=== PATIENT | female | born 1980 | race Caucasian/White ===

== ENCOUNTER 2020-08-03 11:00 | Emergency (ER) | payer BC ==
[2020-08-03] MEDS ORDERED: CLINDAMYCIN 600 MG/D5W RTU 600 MG/50 ML RTUPB IV ONE (11:44)
--- NOTE | 2020-08-03 11:52 | ER Document Report ---
ED Medical Screen (RME) - General Chief Complaint: Abscess Stated Complaint: ABSCESS Time Seen by Provider: 08/03/20 11:34 Mode of Arrival: Wheelchair Information source: Patient Notes: HPI; 39-year-old female presents to the emergency room with a questional abscess to her left inner thigh for the past 5 days. Started taking leftover Bactrim and Flagyl that she had from her previous abscess in May for the past 3 days states the abscess has been getting progressively bigger. Patient was seen in [facility] in May for an abscess to her right side of her abdomen. Had it lanced ended up being admitted for 3 days for IV antibiotics. Was diagnosed with MRSA. Patient states symptoms fully resolved and now she has a new one on her left inner thigh. She recently moved here from [place] 1 week ago. She denies any fevers. No COVID-19 exposure. PE: Alert and oriented x3. Lungs: Clear to auscultation without rales, rhonchi, wheezes. Heart: Tachycardic without murmurs, rubs or gallops. Unable to do full assessment in triage. I have greeted and performed a rapid initial assessment of this patient. A comprehensive ED assessment and evaluation of the patient, analysis of test results and completion of the medical decision making process will be conducted by additional ED providers. I have specifically instructed the patient or family members with the patient to immediately return to any nursing staff should anything change in the patient's condition or with their chief complaint. TRAVEL OUTSIDE OF THE [place] IN LAST 30 DAYS: No - Related Data Allergies/Adverse Reactions: Penicillins Allergy (Verified 08/03/20 11:32) Physical Exam - Vital signs Vitals: Temp Pulse Resp BP Pulse Ox 98 F 101 H 20 139/90 H 100 08/03/20 11:10 08/03/20 11:10 08/03/20 11:10 08/03/20 11:10 08/03/20 11:10 Course - Vital Signs Vital signs: Temp Pulse Resp BP Pulse Ox 98 F 101 H 20 139/90 H 100 08/03/20 11:10 08/03/20 11:10 08/03/20 11:10 08/03/20 11:10 08/03/20 11:10
[2020-08-03 12:11] LABS: ABSOLUTE BASOPHILS # (AUTO) 0.1 10^3/uL (0.0-0.2); ABSOLUTE EOSINOPHILS # (AUTO) 0.2 10^3/uL (0.0-0.6); ABSOLUTE LYMPHOCYTES (AUTO) 1.6 10^3/uL (0.5-4.7); ABSOLUTE MONOCYTES (AUTO) 0.8 10^3/uL (0.1-1.4); ABSOLUTE NEUT (AUTO) 7.6 10^3/uL (1.7-8.2); EOSINOPHILS % (AUTO) 2.3 % (0-6); HEMATOCRIT 44.7 % (36.0-47.0); HEMOGLOBIN 15.5 g/dL (12.0-15.5); LYMPHOCYTES % (AUTO) 15.2 % (13-45); MEAN CORPUSCULAR HEMOGLOBIN 31.5 pg (27.0-33.4); MEAN CORPUSCULAR HGB CONC 34.7 g/dL (32.0-36.0); MEAN CORPUSCULAR VOLUME 91 fl (80-97); MONOCYTES % (AUTO) 7.9 % (3-13); PLATELET COUNT 350 10^3/uL (150-450); RED BLOOD COUNT 4.93 10^6/uL (3.72-5.28); RED CELL DISTRIBUTION WIDTH 13.1 % (11.5-14.0); SEGMENTED NEUTROPHILS % (AUTO) 73.6 % (42-78); TOTAL CELLS COUNTED % (AUTO) 100 %; WHITE BLOOD COUNT 10.3 10^3/uL (4.0-10.5)
[2020-08-03 12:25] LABS: ALBUMIN 4.5 g/dL (3.5-5.0); ALKALINE PHOSPHATASE 96 U/L (38-126); ANION GAP 9 (5-19); ASPARTATE AMINO TRANSFERASE 18 U/L (14-36); BILIRUBIN,DIRECT 0.3 mg/dL (0.0-0.4); BILIRUBIN,TOTAL 0.6 mg/dL (0.2-1.3); BLOOD UREA NITROGEN 16 mg/dL (7-20); CARBON DIOXIDE 28 mmol/L (22-30); CHLORIDE 103 mmol/L (98-107); GLUCOSE 81 mg/dL (75-110); TOTAL PROTEIN 7.8 g/dL (6.3-8.2)
[2020-08-03] MEDS ORDERED: MORPHINE SULFATE 10 MG/ML INJ IV ONE (13:54)
--- NOTE | 2020-08-03 13:58 | ER Document Report ---
ED Skin Rash/Insect Bite/Abscs - General Chief Complaint: Abscess Stated Complaint: ABSCESS Time Seen by Provider: 08/03/20 11:34 Mode of Arrival: Wheelchair Information source: Patient TRAVEL OUTSIDE OF THE [place] IN LAST 30 DAYS: No - HPI Notes: 39-year-old female presents to ED for evaluation of abscess to the left mid proximal thigh for the last week. Patient reports that roughly 2 to 3 days ago she started taking leftover antibiotic she had from May when she was seen in [place] for similar complaints. Patient reports she had a right abdominal abscess that was treated with IV antibiotics and packing while in the hospital. Patient states she also had one to her left forearm at the same time. She has taken 3 days of Flagyl and Bactrim without improvement to her current abscess. Patient is uncertain about history of MRSA. Notes drainage to the area of the left thigh. Denies fever, chills, nausea, vomiting, chest pain or SOB. Reports she did just moved to this area from [place] within the last week. - Related Data Allergies/Adverse Reactions: Penicillins Allergy (Verified 08/03/20 11:32) Past Medical History - General Information source: Patient - Social History Smoking Status: Former Smoker Family History: None Review of Systems - Review of Systems Notes: Constitutional: Negative for fever. HENT: Negative for sore throat. Eyes: Negative for visual changes. Cardiovascular: Negative for chest pain. Respiratory: Negative for shortness of breath. Gastrointestinal: Negative for abdominal pain, vomiting or diarrhea. Genitourinary: Negative for dysuria. Musculoskeletal: Negative for back pain. Skin: Positive for open abscess with surrounding cellulitis to the left leg Neurological: Negative for headaches, weakness or numbness. 10 point ROS negative except as marked above and in HPI. Physical Exam - Vital signs Vitals: Temp Pulse Resp BP Pulse Ox 98 F 101 H 20 139/90 H 100 08/03/20 11:10 08/03/20 11:10 08/03/20 11:10 08/03/20 11:10 08/03/20 11:10 Notes: General: No acute distress. Alert and oriented x3. Sitting comfortably in a stretcher. Skin: Intact without any jaundice, pallor, or erythema. Warm and dry. Neck: Supple with no lymphadenopathy. Thyroid is nontender with no swelling or palpable nodules. Heart: Regular rate and rhythm. S1,S2. No murmurs, rubs, or gallops. Lungs: Clear to auscultation bilaterally. No wheezes, rhonchi, rales. Equal ches t expansion. No retractions. Abdomen: Soft, nontender to palpation, nondistended. Positive bowel sounds in all 4 quadrants. No hepatosplenomegaly. No masses. Neuro: GCS 15. Moving all extremities without discomfort. Musculoskeletal: Left Le cm area of fluctuance with drainage to the left mid anterior proximal thigh. Induration and erythema surrounding the site with associated warmth. No ecchymosis, swelling, palpable cords or deformity. No tenderness to palpation. Full range of motion of hip, knee, and ankle without discomfort. Knee joint is stable. No calf tenderness. Toes are warm and mobile with brisk capillary refill. Dorsalis pedis pulses 2+ bilaterally. Course - Re-evaluation Re-evalutation: 08/03/20 17:41 39-year-old female with history of abscess presents to ED for evaluation of abscess and surrounding cellulitis to the left mid anterior thigh. Patient has taken antibiotics that she has at home however has not been prescribed any. Labs which show no WBC count or electrolyte abnormalities. Lactic acid is negative. CT scan of the extremity was obtained which shows no tracking or burrowing at this time. There is no sign of systemic illness. Incision and drainage of abscess was performed. Wound culture is pending. Patient is advised to apply warmth compresses and bacitracin dressings to the area. Advised to soak the area and leave packing in place for the next 2 days and return for wound check and to have packing changed at that time. Patient is started on Clindamycin. Patient is advised of possible MRSA infection. Patient will return for check and for any new or worsening symptoms including any spreading of erythema or fever. Patient understands indications to return to the ER. Patient is agreeable with this plan. - Vital Signs Vital signs: Temp Pulse Resp BP Pulse Ox 98 F 101 H 20 139/90 H 100 08/03/20 11:10 08/03/20 11:10 08/03/20 11:10 08/03/20 11:10 08/03/20 11:10 - Laboratory Result Diagrams: 08/03/20 11:51 08/03/20 11:51 - Diagnostic Test Radiology reviewed: Image reviewed Radiology results interpreted by me: 08/03/20 17:41 CT scan of left upper extremity shows the patient has localized cellulitis w ithout tracking. Procedures - Incision and Drainage Left Upper Thigh Time completed: 17:36 Type: Simple Anesthetic type: 1% Lidocaine w/epi mL's of anesthetic: 4 - LET solution Blade size: 11 I&D procedure: Betadine prep applied, Iodoform packing placed, Sterile dressing applied Incision Method: Incision made by scalpel Amount/type of drainage: Moderate pus Discharge - Discharge Clinical Impression: Cellulitis of left anterior lower leg, Abscess of left thigh Condition: Stable Disposition: HOME, SELF-CARE Instructions: Abscess ([facility]), MRSA Cellulitis ([facility]), Post Incision and Drainage Additional Instructions: Please return in 2 days for wound check and packing change. Please soak 2-3 times daily in tube with epson salts. Prescriptions: Clindamycin HCl 300 mg PO TID #30 capsule Hydrocodone/Acetaminophen [[place] 5-325 mg Tablet] 1 tab PO TID #12 tablet
--- NOTE | 2020-08-03 15:07 | RADIOLOGY REPORT (SQ) ---
EXAM DESCRIPTION: CT LEFT LOWER EXTREMITY WITH IMAGES COMPLETED DATE/TIME: 08/03/2020 2:48 pm REASON FOR STUDY: r.o nec fac of left thigh COMPARISON: None. EXAM PARAMETERS: TECHNIQUE:Axial imaging performed through the left thigh with reformatted coronal a nd sagittal imaging windowed for bone and soft tissues. Images saved to PACS. 3D IMAGING: Were 3D images as MIP, SSD, or volume rendering performed at the work station? No. All CT scanners at this facility use dose modulation, iterative reconstruction, and/or weight based d osing when appropriate to reduce radiation dose to as low as reasonably achievable (ALARA). [facility]: Dose Right [facility]: SureCare [facility]: Dose Right [facility]: Teradose 4D [facility]: [employer] RADIATION DOSE: CT Rad equipment meets quality standard of care and radiation dose reduction techniqu es were employed. CTDIvol: 4.1 mGy. DLP: 372 mGy-cm. mGy. LIMITATIONS: None. FINDINGS: SOFT TISSUES: There is a small area of soft tissue edema and stranding along the medial le ft thigh. No subcutaneous gas no localized collection. BONES: No acute fracture. No dislocation. MINERALIZATION: Normal. OTHER: No other significant finding. IMPRESSION: Cellulitis along the medial left thigh. No subcutaneous gas or localized fluid collecti on. TECHNICAL DOCUMENTATION: JOB ID: [id number] [facility] [id number]: Final reports with documentation of one or more dose reduction techniques (e.g., Automate d exposure control, adjustment of the mA and/or kV according to patient size, use of iterative recons truction technique) 2010 [employer]- All Rights Reserved Reading location - IP/workstation name: [email or web address]
[2020-08-03] MEDS ORDERED: LIDOCAINE 1%/EPINEPHRINE INJ 20 ML VIAL INJ ONE (15:26)
[2020-08-03] MEDS ORDERED: ALPRAZOLAM 0.5 MG TABLET PO ONE (15:58)
[2020-08-03] MEDS ORDERED: LIDOCAINE 4%/TETRACAINE 0.5%/EPI 0.18% 5 ML TOPICAL SOLN TOP ONE (15:58)
[2020-08-03 18:05] VITALS: BP 126/87
== END 2020-08-03 18:04 | disposition home or self-care (01) ==
LOC: ER 11:00
DX: L02.416 Cutaneous abscess of left lower limb (principal); L03.116 Cellulitis of left lower limb; Z88.0 Allergy status to penicillin; Z87.891 Personal history of nicotine dependence
CPT/HCPCS: 99285; 96375; 96365; 96366; 36415; 87040; 87070; 87205; 83605; 84703; 85025; 87075; 87077; 80053; 87186; 73701; 10060; J3490 ×2; J2270

== ENCOUNTER 2020-08-05 12:56 | Emergency (ER) | payer BC ==
--- NOTE | 2020-08-05 13:30 | ER Document Report ---
ED Medical Screen (RME) - General Chief Complaint: Abscess Recheck Stated Complaint: REVISIT/ABSCESS,LEFT LEG Time Seen by Provider: 08/05/20 13:13 TRAVEL OUTSIDE OF THE [place] IN LAST 30 DAYS: No - HPI Notes: 08/05/20 13:28 39-year-old female presents to the emergency room for reevaluation of an abscess to her left inner thigh that she had drained 2 days ago, was placed on clindamycin. Patient does have a history of MRSA. States that the wound is getting progressively worse. Reports pain is 4 out of 5, throbbing aching. Last menstrual cycle 07/09/2020. Patient states when is becoming progressively worse. I have greeted and performed a rapid initial assessment of this patient. A comprehensive ED assessment and evaluation of the patient, analysis of test results and completion of the medical decision making process will be conducted by additional ED providers. PHYSICAL EXAMINATION: GENERAL: Well-appearing, well-nourished and in no acute distress. NEUROLOGICAL: Normal speech, normal gait. SKIN: Warm, Dry, normal turgor, no rashes or lesions noted. Wound approximately 4obb9fr with discoloration and oozing purulent drainage - Related Data Allergies/Adverse Reactions: Penicillins Allergy (Verified 08/05/20 13:12) Physical Exam - Vital signs Vitals: Temp Pulse Resp BP Pulse Ox 98.2 F 90 18 128/86 H 99 08/05/20 13:08 08/05/20 13:08 08/05/20 13:08 08/05/20 13:08 08/05/20 13:08 Course - Vital Signs Vital signs: Temp Pulse Resp BP Pulse Ox 98.2 F 90 18 128/86 H 99 08/05/20 13:08 08/05/20 13:08 08/05/20 13:08 08/05/20 13:08 08/05/20 13:08
[2020-08-05] MEDS ORDERED: LIDOCAINE 1%/EPINEPHRINE INJ 20 ML VIAL INJ ONE (15:58)
[2020-08-05] MEDS ORDERED: MORPHINE SULFATE 10 MG/ML INJ IM ONE (15:59)
--- NOTE | 2020-08-05 17:06 | ER Document Report ---
ED Suture/Wound Recheck - General Chief Complaint: Wound Recheck Stated Complaint: REVISIT/ABSCESS,LEFT LEG Time Seen by Provider: 08/05/20 13:13 Mode of Arrival: Ambulatory Information source: Patient TRAVEL OUTSIDE OF THE [place] IN LAST 30 DAYS: No - HPI Notes: Patient presents with left thigh pain. Patient was here 2 days ago for incision and drainage of an abscess. She states she feels like it is still very painful and may not be improving. She states she has been taking her clindamycin. She denies any fever sweats or chills. The pain is a burning sensation moderate to severe in intensity. Is located in the left thigh and radiates down the left thigh. It is worse with being touched and better if left alone. - Related Data Allergies/Adverse Reactions: Penicillins Allergy (Verified 08/05/20 13:12) Past Medical History - General Information source: Patient - Social History Smoking Status: Former Smoker Frequency of alcohol use: None Drug Abuse: None Family History: Reviewed & Not Pertinent Review of Systems - Review of Systems Constitutional: denies: Chills, Fever Cardiovascular: denies: Chest pain, Palpitations Respiratory: denies: Cough, Short of breath -: Yes All other systems reviewed and negative Physical Exam - Vital signs Vitals: Temp Pulse Resp BP Pulse Ox 98.2 F 90 18 128/86 H 99 08/05/20 13:08 08/05/20 13:08 08/05/20 13:08 08/05/20 13:08 08/05/20 13:08 Interpretation: Normal - General General appearance: Appears well, Alert - HEENT Head: Normocephalic, Atraumatic Eyes: Normal Pupils: PERRL - Respiratory Respiratory status: No respiratory distress Chest status: Nontender Breath sounds: Normal Chest palpation: Normal - Cardiovascular Rhythm: Regular Heart sounds: Normal auscultation Murmur: No - Abdominal Inspection: Normal Distension: No distension Bowel sounds: Normal Tenderness: Nontender Organomegaly: No organomegaly - Back Back: Normal, Nontender - Extremities General upper extremity: Normal inspection, Nontender, Normal color, Normal ROM, Normal temperature General lower extremity: Normal ROM, Normal temperature, Normal weight bearing, Other - Patient has a healing abscess of the left medial thigh. There is some adherent pustular material. No significant surrounding erythema or cellulitis. It is obviously tender to palpation.. No: Royce's sign - Neurological Neuro grossly intact: Yes Cognition: Normal Orientation: AAOx4 Adriana Coma Scale Eye Opening: Spontaneous Rodney Coma Scale Verbal: Oriented Rodney Coma Scale Motor: Obeys Commands Rodney Coma Scale Total: 15 Speech: Normal Motor strength normal: LUE, RUE, LLE, RLE Sensory: Normal - Psychological Associated symptoms: Normal affect, Normal mood - Skin Skin Temperature: Warm Skin Moisture: Dry Skin Color: Normal Course - Vital Signs Vital signs: Temp Pulse Resp BP Pulse Ox 98.2 F 90 18 128/86 H 99 08/05/20 13:08 08/05/20 13:08 08/05/20 13:08 08/05/20 13:08 08/05/20 13:08 - Laboratory Results Critical Laboratory Results Reviewed: No Critical Results - Radiology Results Critical Radiology Results Reviewed: No Critical Results Procedures - Incision and Drainage Left Thigh Time completed: 17:06 Type: Simple Anesthetic type: 1% Lidocaine w/epi mL's of anesthetic: 3 I&D procedure: Iodoform packing placed, Sterile dressing applied Incision Method: Incision made with needle - Patient had the wound incised and drained 2 days ago. I anesthetized the wound and then remove some of the adherent pustular material with forceps and replaced the packing. Discharge - Discharge Clinical Impression: Abscess of left thigh Condition: Stable Disposition: HOME, SELF-CARE Instructions: Abscess ([facility]), Oral Narcotic Medication ([facility]), Post Incision and Drainage Additional Instructions: Have wound rechecked by provider in 2 to 3 days. If the packing falls out please do not replace it. Prescriptions: Mupirocin [Bactroban 2% Ointment 22 gm] 1 applic TP BID 10 Days #1 tube Hydrocodone/Acetaminophen [[place] 5-325 mg Tablet] 1 tab PO Q6 PRN 3 Days #12 tablet PRN Reason: For Pain Referrals: [facility] [Provider Group] - Follow up in 3-5 days
[2020-08-05 18:08] VITALS: BP 132/84
== END 2020-08-05 18:08 | disposition home or self-care (01) ==
LOC: ER 12:56
DX: L02.416 Cutaneous abscess of left lower limb (principal)
CPT/HCPCS: 99284; 96372; 10060; J3490; J2270

== ENCOUNTER 2020-08-15 13:17 | Emergency (ER) | payer BC ==
[2020-08-15] MEDS ORDERED: ACETAMINOPHEN 325 MG TABLET PO ONE (13:34)
[2020-08-15] MEDS ORDERED: MORPHINE SULFATE 10 MG/ML INJ ONE (14:27)
--- NOTE | 2020-08-15 14:38 | ER Document Report ---
HPI - HPI Patient complains to provider of: abscess Time Seen by Provider: 08/15/20 13:28 Onset: Other - 2 days Onset/Duration: Worse Quality of pain: Sharp Pain Level: 5 Context: Patient presents complaining of abscess to the left axilla for the past 2 days. Patient states she had a similar abscess to the left medial thigh 10 days ago. Patient just finished clindamycin. Associated Symptoms: denies: Fever Exacerbated by: Movement Relieved by: Denies Similar symptoms previously: Yes Recently seen / treated by doctor: Yes - ROS ROS below otherwise negative: Yes Systems Reviewed and Negative: Yes All other systems reviewed and negative - CONSTITUTIONAL Constitutional: DENIES: Fever - MUSCULOSKELETAL Musculoskeletal: REPORTS: Extremity pain - DERM Skin Color: Erythema Notes: Abscess Past Medical History - General Information source: Patient - Social History Smoking Status: Never Smoker Lives with: Family Family History: Reviewed & Not Pertinent - Medical History Medical History: Negative Past Surgical History: Reports: Hx Section, Hx Tubal Ligation Vertical Provider Document - CONSTITUTIONAL Agree With Documented VS: Yes Exam Limitations: No Limitations General Appearance: WD/WN, No Apparent Distress - INFECTION CONTROL TRAVEL OUTSIDE OF THE [place] IN LAST 30 DAYS: No - HEENT HEENT: Atraumatic, Normocephalic - NECK Neck: Normal Inspection - RESPIRATORY Respiratory: Breath Sounds Normal, No Respiratory Distress - CARDIOVASCULAR Cardiovascular: Regular Rate, Regular Rhythm - MUSCULOSKELETAL/EXTREMETIES Musculoskeletal/Extremeties: MAEW, FROM - NEURO Level of Consciousness: Awake, Alert, Appropriate Motor/Sensory: No Motor Deficit - DERM Integumentary: Warm, Dry, Abscess - left axilla abscess 2 cm diameter Course - Re-evaluation Re-evalutation: 08/15/20 14:46 Review of patient's previous visit demonstrates wound culture was not susceptible to clindamycin. Patient did grow out MRSA that is susceptible to Bactrim, will start patient on Bactrim at this time. Patient nontoxic in appearance, no concern for cellulitis. - Laboratory Results Critical Laboratory Results Reviewed: No Critical Results - Radiology Results Critical Radiology Results Reviewed: No Critical Results Procedures - Incision and Drainage Left Arm Type: Simple Anesthetic type: 1% Lidocaine Blade size: 11 I&D procedure: Betadine prep applied Incision Method: Incision made by scalpel Amount/type of drainage: mod amount of purulent drainage Discharge - Discharge Clinical Impression: Abscess, Encounter for incision and drainage procedure Condition: Stable Disposition: HOME, SELF-CARE Instructions: Abscess ([facility]), Post Incision and Drainage, Trimethoprim-Sulfa ([facility]) Additional Instructions: Return immediately for any new or worsening symptoms Followup with your primary care provider, call tomorrow to make a followup appointment Take antibiotic as prescribed Prescriptions: Sulfamethoxazole/Trimethoprim [Bactrim Ds Tablet] 1 each PO BID #20 tablet Naproxen [Naprosyn 250 Nmg Tablet] 1 tab PO BID #14 tablet Referrals: [facility] [Provider Group] - Follow up as needed
[2020-08-15 14:59] VITALS: BP 130/88
== END 2020-08-15 14:50 | disposition home or self-care (01) ==
LOC: ER 13:17
DX: L02.412 Cutaneous abscess of left axilla (principal)
CPT/HCPCS: 99284; 96374; 87070; 87205; 87075; 87077; 87186; 10060; J2270

== ENCOUNTER 2020-08-20 17:21 | Emergency (ER) | payer BC ==
[2020-08-20 17:27] VITALS: BP 149/82
--- NOTE | 2020-08-20 18:08 | ER Document Report ---
HPI - HPI Patient complains to provider of: Abscess Time Seen by Provider: 08/20/20 17:55 Onset: Other - Months Onset/Duration: Intermittent Quality of pain: Sharp, Throbbing Severity: Moderate Pain Level: 3 Context: 39-year-old female presents to ED for complaint of abscesses to her left axilla. She states she has had these intermittently since May. She states that when she has right now is been for about a month. She has been to the emergency room multiple times. She states she was started on clindamycin and told that these were resistant to clindamycin she does have MRSA. She was started on Bactrim on Tuesday has been taking it as prescribed but it is not improved the abscesses. I did speak with Dr. Wilson showed him pictures of the actual abscesses and the wound culture. He stated she needed to be started on doxycycline have her clean the wound with Hibiclens or surgical scrub 3 times a day rinse with cool to tepid water pat dry apply Bactroban and then take the doxycycline and Bactrim as prescribed. Use Tylenol or Motrin for discomfort. Follow-up with ER if there is not any improvement. He states more important follow-up with her primary care. Constitutional: Negative for fever. HENT: Negative for sore throat. Eyes: Negative for visual changes. Cardiovascular: Negative for chest pain. Respiratory: Negative for shortness of breath. Gastrointestinal: Negative for abdominal pain, vomiting or diarrhea. Genitourinary: Negative for dysuria. Musculoskeletal: Negative for back pain. Skin: 2 abscesses swelling redness to the left axilla Neurological: Negative for headaches, weakness or numbness. 10 point ROS negative except as marked above and in HPI. PHYSICAL EXAMINATION: GENERAL: Well-appearing, well-nourished and in no acute distress. HEAD: Atraumatic, normocephalic. EYES: Pupils equal round extraocular movements intact, conjunctiva are normal. ENT: Nares patent NECK: Normal range of motion LUNGS: No respiratory distress Musculoskeletal: Normal range of motion NEUROLOGICAL: Normal speech, normal gait. PSYCH: Normal mood, normal affect. SKIN: 2 abscesses left axilla under to palpation Associated Symptoms: Other - Pain redness and swelling to both abscesses Exacerbated by: Movement - Palpation Relieved by: Denies Similar symptoms previously: Yes Recently seen / treated by doctor: Yes - ROS ROS below otherwise negative: Yes - CONSTITUTIONAL Constitutional: DENIES: Fever, Chills - EENT EENT: DENIES: Sore Throat, Ear Pain, Nasal Drainage-Clear, Nasal Drainage- Purulent, Congestion, Eye problems - NEURO Neurology: DENIES: Headache, Weakness, Vision blurred, Dizzinesss / Vertigo - CARDIOVASCULAR Cardiovascular: DENIES: Chest pain - RESPIRATORY Respiratory: DENIES: Trouble Breathing, Coughing - GASTROINTESTINAL Gastrointestinal: DENIES: Abdominal Pain, Nausea, Patient vomiting, Diarrhea, Constipation, Black / Bloody Stools - URINARY Urinary: DENIES: Dysuria, Urgency, Frequency - REPRODUCTIVE Reproductive: DENIES: :, Postmenopausal, Abnormal bleeding / discharge - MUSCULOSKELETAL Notes: 2 abscesses left axilla red swollen tender - DERM Skin Color: Erythema, Other - Abscesses x2 Past Medical History - General Information source: Patient - Social History Smoking Status: Former Smoker Frequency of alcohol use: None Drug Abuse: None Lives with: Family Family History: Reviewed & Not Pertinent Patient has suicidal ideation: No Patient has homicidal ideation: No - Past Medical History Cardiac Medical History: Reports: None Pulmonary Medical History: Reports: None Neurological Medical History: Reports: None Endocrine Medical History: Reports: None Renal/ Medical History: Reports: None Malignancy Medical History: Reports: None GI Medical History: Reports: None Musculoskeletal Medical History: Reports Hx Musculoskeletal Deformity, Reports Hx Musculoskeletal Trauma Skin Medical History: Reports Hx Cellulitis, Reports Hx MRSA Psychiatric Medical History: Reports: None Traumatic Medical History: Reports: Hx Fractures - Left wrist right finger Infectious Medical History: Reports: None Past Surgical History: Reports: Hx Section, Hx Tubal Ligation - Immunizations Immunizations up to date: Yes Hx Diphtheria, Pertussis, Tetanus Vaccination: Yes - 2016 [employer] Provider Document - INFECTION CONTROL TRAVEL OUTSIDE OF THE [place] IN LAST 30 DAYS: No Course - Vital Signs Vital signs: Temp Pulse Resp BP Pulse Ox 98.5 F 98 16 149/82 H 98 08/20/20 17:23 08/20/20 17:23 08/20/20 17:23 08/20/20 17:23 08/20/20 17:23 - Laboratory Results Critical Laboratory Results Reviewed: No Critical Results - Radiology Results Critical Radiology Results Reviewed: No Critical Results Discharge - Discharge Clinical Impression: Abscess Condition: Stable Disposition: HOME, SELF-CARE Additional Instructions: ABSCESS: You have an abscess (boil). This a pus-forming infection, usually due to staph. Some boils may be left to drain on their own, but most require lancing. From the time the tender lump first appears, it may be three or four days before the abscess is ready to anders. Local heat and rest help at this stage of treatment. An antibiotic may prevent spread of the infection. Once the abscess is opened, packing may be placed into it. This is done so pus is not sealed inside by premature closure of the cavity. The packing will be removed at your follow-up visit or you may be advised to remove it yourself at home. Sometimes this packing must be replaced a few times during healing. The wound will heal with surprisingly little scar. Depending on the size and location of an abscess, healing can take one to four weeks. You may shower and wash the area around the incision site two or three times a day. Antibiotics may be prescribed, but are usually not necessary after an abscess has been drained. If you develop fever, chills, worsening pain, or increasing swelling in the area, call the doctor or return immediately. MRSA CELLULITIS: You have an infection of your skin and underlying soft tissues called cellulitis. This is due to bacteria, which can enter through any break in the skin, or even through an irritated hair follicle. Untreated, cellulitis will usually worsen and may form an abscess which requires draining. Although many bacterial organisms can cause cellulitis and abscess forma tions, the most likely bacteria is Methicillin-Resistant Staph Aureus, or MRSA for short. Antibiotics are required. Usually, warm packs or warm soaks, and elevation of the infected area are recommended. You should start getting better within 24 to 36 hours. Most infections respond quickly to the right medication. Follow-up care is important, however, to check for abscess (boil) formation, unsuspected foreign body, or resistant infection. If you develop fever, chills, or if the area of infection is becoming rapidly more swollen or painful, call the doctor at once. Bactroban Ointment Bactroban is very effective against the germs that cause infection within the skin. It's useful for impetigo and other superficial infections. Deeper infections require antibiotics by mouth or by shot. Apply the medicine three times a day for one week, or longer if your doctor has advised it. Stop the medicine and call your doctor if you develop large blisters, sev ere itching, increasing pain, swelling, fever, or spreading redness. TRIMETHOPRIM-SULFA: You have been given a prescription for trimethoprim-sulfa (TMS, Septra, Bactrim). This is a combination antibiotic of the sulfa class, often used for urinary tract infections, middle ear infections, bronchitis, shigella intestinal infection, and Pneumocystis pneumonia. TMS is usually well-tolerated. Occasional side effects include nausea and decreased appetite. Septra is not recommended for infants less than two months of age. Do not take this medication if you have experienced severe side effects or allergy to sulfa medicine. You should stop this medicine at once and contact your physician if you develop any rash, joint pain, shortness of breath, bruising, or jaundice (yellow color in the skin), or if you develop any other new or unusual symptoms. DOXYCYCLINE: Doxycycline (Vibramycin, Doryx) is an antibiotic of the tetracycline family. This type of drug is useful for infections of the respiratory tract and genital tract, and is sometimes used for intestinal infections. Unlike most tetracyclines, doxycycline can be taken with food. It is longer acting, and (usually) less prone to side effects than regular tetracycline. Tetracycline antibiotics can stain immature teeth and SHOULD NOT BE TAKEN BY CHILDREN, NURSING MOTHERS, OR WOMEN. Tetracyclines can make you more prone to sunburn. Abdominal cramping, nausea, and diarrhea are occasional side effects. Women may experience vaginal yeast infections. Call the doctor at once if you develop hives, itching, shortness of breath, or lightheadedness. Pain abscesses 3 times a day with surgical scrub or Hibiclens, rinse well with cool to tepid water, pat dry, apply Bactroban 3 times a day. Take antibiotics as prescribed FOLLOW-UP CARE: Most simple abscesses will not require a follow up visit. If you had packing placed in the abscess, remove it as instructed by the physician. If you have been referred to a physician for follow-up care, call the physicians office for an appointment as you were instructed or within the next two days. If you experience worsening or a significant change in your symptoms, return to the Emergency Department at any time for re-evaluation. Prescriptions: Mupirocin [Bactroban 2% Ointment 22 gm] 1 applic TP TID #1 tube Doxycycline Monohydrate 100 mg PO BID #20 capsule Referrals: [facility] [Provider Group] - Follow up as needed [facility] [Provider Group] - Follow up as needed [facility] [Provider Group] - [facility] - Follow up as needed [facility] [Provider Group] - Follow up as needed [facility] [Provider Group] - Follow up as needed
[2020-08-20] MEDS ORDERED: DOXYCYCLINE HYCLATE 100 MG TABLET PO ONE (18:12)
[2020-08-20] MEDS ORDERED: MUPIROCIN 2% OINTMENT 22 GM TP ONE (18:12)
== END 2020-08-20 19:28 | disposition home or self-care (01) ==
LOC: ER 17:21
DX: L02.412 Cutaneous abscess of left axilla (principal); B95.62 Methicillin resistant Staphylococcus aureus infection as the cause of diseases classified elsewhere; Z16.29 Resistance to other single specified antibiotic
CPT/HCPCS: 99283; J3490